=== PATIENT | female | born 1985 | race Caucasian/White ===

== ENCOUNTER 2016-07-14 12:28 | Emergency (ER) ==
[2016-07-14 12:37] VITALS: BP 122/80; TEMP 98.5; BMI 20.3
== END 2016-07-14 14:12 | disposition left against medical advice (07) ==
LOC: ED 12:28
DX: R51 Headache (principal); R11.0 Nausea; R52 Pain, unspecified; R10.9 Unspecified abdominal pain; Z98.890 Other specified postprocedural states

== ENCOUNTER 2016-10-13 10:52 | Outpatient (CLI) | END 2016-10-13 10:53 | disposition home or self-care (01) | LOC: LAB 10:52 | PROVIDERS: ATTEND Internal Medicine Hematology & Oncology | DX: D47.2 Monoclonal gammopathy (principal) | CPT/HCPCS: 36415; 84132 ==

== ENCOUNTER 2016-10-26 15:54 | Outpatient (CLI) ==
--- NOTE | 2016-10-26 16:37 | DI ---
EXAM: Bone survey HISTORY: Multiple myeloma. COMPARISON: CT abdomen pelvis 11/17/2015 FINDINGS: There is no lytic or blastic lesion of the skull. The paranasal sinuses are clear. There is no osseous abnormality of the ribs or thoracic spine. No lytic or blastic lesion. The left upp er extremities are normal. The lumbosacral spine demonstrates no lytic or blastic lesion. Single v iew of the pelvis demonstrates no lytic or blastic lesion. The pubic symphysis and sacroiliac joint s are normal. The hip joints are normal. Left lower extremities are normal. The lungs are clear. IMPRESSION: No lytic or sclerotic lesion of the visualized bones to suggest metastatic disease or m ultiple myeloma.
== END 2016-10-26 15:55 | disposition home or self-care (01) ==
LOC: RAD 15:54
PROVIDERS: ATTEND Internal Medicine Hematology & Oncology
DX: D47.2 Monoclonal gammopathy (principal)

== ENCOUNTER 2016-12-11 22:16 | Emergency (ER) ==
[2016-12-11 22:16] VITALS: BMI 20.3
[2016-12-11 22:33] VITALS: BP 125/84; TEMP 101
[2016-12-11] MEDS ORDERED: TORADOL IM STA (22:51)
--- NOTE | 2016-12-11 22:51 | ED.PDOC ---
General ED Provider: Dr. CHARLOTTE HANNAH Chief Complaint: Extremity Pain/Injury Stated Complaint: Patient is a 31 year old female who comes to the Er with complaints of Left shoulder pain that started yesterday after she fell off her stairs. Has limited range of motion on the left shoulder. Time Seen by Physician: 22:45 Mode of Arrival: Walk-In Information Source: Patient Exam Limitations: No limitations Primary Care Provider: JAYCE TERRELLYanick Nursing and Triage Documentation Reviewed and Agree: Yes Musculoskeletal Complaint Exam - Shoulder Pain Complaint/Exam Mechanism of Injury: Reports: Trauma Onset/Duration: 1 day Symptoms Are: Still present Timing: Constant Initial Severity: Severe Current Severity: Severe Location: Reports: Discrete (left shoulder ) Character: Reports: Throbbing Aggravating: Reports: Movement, Lifting, Flexion, Extension, Internal rotation, External rotation, Abduction Non-Orthopedic Risk Factors: Reports: None DVT Risk Factors: Reports: None Related Surgical History: Reports: None Tenderness: Present: Clavicle, AC joint, Rotator cuff muscles Differential Diagnoses: AC Seperation, Rotator Cuff Injury, Sprain, Strain Review of Systems - Review Of Systems Constitutional: Reports: No symptoms Eyes: Reports: No symptoms Ears, Nose, Mouth, Throat: Reports: No symptoms Respiratory: Reports: No symptoms Cardiac: Reports: No symptoms GI: Reports: No symptoms : Reports: No symptoms Musculoskeletal: Reports: Joint pain, Joint swelling, Muscle pain, Muscle stiffness Skin: Reports: No symptoms Neurological: Reports: Anxiety Endocrine: Reports: No symptoms Hematologic/Lymphatic: Reports: No symptoms All Other Systems: Reviewed and Negative Past Medical History - Past Medical History Endocrine: Reports: Hypothyroid Cardiovascular: Reports: None Respiratory: Reports: None Hematological: Reports: None Gastrointestinal: Reports: GERD Genitourinary: Reports: None Neuro/Psych: Reports: None, Anxiety Musculoskeletal: Reports: Arthritis Cancer: Reports: None Last Menstrual Period: DECEMBER 01, 2016 Other Pertinent Past Medical History: anx btl 07-03-15 - Surgical History General Surgical History: Reports: Tubal ligation, Unknown - Family History Family History: Reports: Unknown - Social History Smoking Status: Current every day smoker, Light tobacco smoker Hx Substance Use: No Alcohol Screening: None - Immunizations Tetanus Shot up to Date: Yes Physical Exam - Physical Exam Appearance: Ill-appearing, Thin Ill-appearing: Mild Pain Distress: Severe Eyes: TYREE, EOMI, Conjunctiva clear ENT: Ears normal, Nose normal, Oropharynx normal Neck: Supple Respiratory: Airway patent, Breath sounds clear, Breath sounds equal, Respirations nonlabored Cardiovascular: RRR, Pulses normal, No rub, No murmur GI/: Soft, Nontender, No masses, Bowel sounds normal, No Organomegaly Musculoskeletal: Limited ROM Psychiatric: Anxious Critical Care Note - Critical Care Note Total Time (mins): 0 Course - Course Orders, Labs, Meds: Orders Category Date Time Status Splint [ED SPLINT APPLICATION] .ONCE EMERGENCY 12/11/16 23:36 Active Ketorolac Tromethamine [Toradol] MEDS 12/11/16 22:51 Discontinued 60 mg IM ONCE STA SHOULDER, LEFT MIN 2V Stat RADS 12/11/16 22:51 Completed Medications Discontinued Medications Generic Name Dose Route Start Last Admin Trade Name Freq PRN Reason Stop Dose Admin Ketorolac Tromethamine 60 mg 12/11/16 22:51 12/11/16 23:12 Toradol IM 12/11/16 22:52 60 mg ONCE STA Administration Vital Signs: Temp Pulse Resp BP Pulse Ox 12/11/16 22:16 101 F H 96 H 20 125/84 94 L Departure - Departure Time of Disposition: 23:37 Disposition: HOME SELF-CARE Discharge Problem: Humeral head fracture Qualifiers: Encounter type: initial encounter Fracture type: closed Laterality: left Qualifier Code: (S42.292A) Other displaced fracture of upper end of left humerus , initial encounter for closed fracture Instructions: Proximal Humerus Fracture (ED) Condition: Fair Pt referred to PMD for follow-up: Yes Additional Instructions: use Shoulder immobilizer as needed for support Follow up with PCP tomorrow for orthopedic referral take medications as needed. Prescriptions: Hydrocodone/Acetaminophen [[place] 5-325 Tablet] 1 tab PO Q6HR PRN #12 tablet PRN Reason: PAIN Ibuprofen [Motrin] 600 mg PO Q6H PRN #30 tablet PRN Reason: Analgesia Allergies/Adverse Reactions: Allergies codeine Adverse Reaction (Verified 12/11/16 22:34) BREAKOUT/VOMITING sulfamethoxazole [From Bactrim] Adverse Reaction (Verified 12/11/16 22:34) trimethoprim [From Bactrim] Adverse Reaction (Verified 12/11/16 22:34) BREAKOUT/VOMIT codeine Adverse Reaction (Uncoded 12/11/16 22:34) Home Medications: Ambulatory Orders Hydrocodone/Acetaminophen [[place] 5-325 Tablet] 1 tab PO Q6HR PRN #12 tablet Ibuprofen [Motrin] 600 mg PO Q6H PRN #30 tablet 12/11/16 Meloxicam [Mobic] 7.5 mg PO DAILYWM 12/11/16 Methotrexate Sodium [Methotrexate] 2.5 mg PO WEEKLY 12/11/16
--- NOTE | 2016-12-11 23:25 | DI ---
EXAM: Three views of the left shoulder. HISTORY: Fall with pain. FINDINGS: There is a nondisplaced fracture through the lateral margin of the left humeral head and n saji. The joint spaces are maintained. No soft tissue abnormality. Impression: Nondisplaced fracture through the lateral margin of the left humeral head and neck.
== END 2016-12-12 00:10 | disposition home or self-care (01) ==
LOC: ED 22:16
DX: S42.292A Other displaced fracture of upper end of left humerus, initial encounter for closed fracture (principal); W10.9XXA Fall (on) (from) unspecified stairs and steps, initial encounter; F17.210 Nicotine dependence, cigarettes, uncomplicated
CPT/HCPCS: 96372; 99283

== ENCOUNTER 2017-02-07 15:28 | Emergency (ER) ==
[2017-02-07 15:32] VITALS: BP 126/81; TEMP 97.6; BMI 19.8
[2017-02-07] MEDS ORDERED: MORPHINE 4 MG/ML SYRINGE IM STA (15:44)
[2017-02-07] MEDS ORDERED: ZOFRAN 4 MG/2 ML IM STA (15:44)
[2017-02-07 15:50] LABS: BASOPHILS # (AUTO) 0.1 K/uL (0-0.2); BASOPHILS % (AUTO) 0.3 % (0.0-3.0); EOSINOPHILS # (AUTO) 0.1 K/ul (0.0-0.7); EOSINOPHILS % (AUTO) 0.9 % (0.0-7.0); HEMATOCRIT 42.6 % (37.0-47.0); HEMOGLOBIN 14.9 g/dl (12.0-16.0); IMMATURE GRANULOCYTE % (AUTO) 0.3 % (0.0-5.0); LYMPHOCYTES % (AUTO) 19.3 (10.0-50.0); MEAN CORPUSCULAR HEMOGLOBIN 31.8 pg (27.0-31.0); MONOCYTES # (AUTO) 0.8 K/uL (0.4-2.0); MONOCYTES % (AUTO) 5.4 (0-10); NEUTROPHILS # (AUTO) 11.2 K/ul (2.0-6.9); NEUTROPHILS % (AUTO) 73.8; PLATELET COUNT 258 10^3/uL (140-440); RED BLOOD COUNT 4.68 10^6/ul (4.20-5.40); WHITE BLOOD COUNT 15.25 K/ul (4.6-10.2)
[2017-02-07] MEDS ORDERED: MORPHINE 4 MG/ML SYRINGE IVP STA (15:50)
[2017-02-07] MEDS ORDERED: ZOFRAN 4 MG/2 ML IVP STA (15:50)
[2017-02-07] MEDS ORDERED: SODIUM CHLORIDE 1,000 ML IV STA (15:51)
[2017-02-07 16:15] LABS: ALBUMIN 4.4 g/dL (3.4-5.0); ALBUMIN/GLOBULIN RATIO 1.38; ANION GAP 17.9; BILIRUBIN,TOTAL 0.57 mg/dL (0.00-1.20); BUN/CREATININE RATIO 16.48; CALCIUM 9.5 mg/dL (8.2-10.2); CREATININE 0.91 mg/dL (0.60-1.30); POTASSIUM 3.9 mmol/L (3.5-5.10); TOTAL PROTEIN 7.6 g/dL (6.4-8.2)
--- NOTE | 2017-02-07 16:17 | US ---
EXAM: Ultrasound Transvaginal Non-obstetrical. HISTORY: Right lower quadrant pain. COMPARISON: CT 03/03/2014. TECHNIQUE: Judd scale and color doppler images with transvaginal probe. FINDINGS: The uterus measures 6.3 x 3.4 x 4.6 cm and appears normal. Endometrial stripe measures 0 .4 cm. Right ovary measures 3 x 1.7 x 1.8 cm. Left ovary measures 2.3 x 2.2 x 1.6 cm. Both ovarie s appear unremarkable with color flow. No significant pelvic fluid identified. IMPRESSION: Normal pelvic ultrasound.
--- NOTE | 2017-02-07 16:30 | CT ---
EXAM: CT Abdomen without contrast. CT Pelvis without contrast. HISTORY: Lower abdominal pain. Right hip pain. Nausea and vomiting. COMPARISON: CT 03/03/2014. TECHNIQUE: Multiple axial images of the abdomen and pelvis were obtained without intravenous contra st. Images were reformatted in the coronal plane. FINDINGS: Please note that evaluation of the abdominal and pelvic structures is limited due to lack of intravenous contrast. The lung bases are clear. No acute osseous abnormality detected. The liver, gallbladder, pancreas, spleen, and adrenal glands demonstrate normal contour. No calcifi ed renal stones or hydronephrosis identified. The bowel is normal in course and caliber without evidence for obstruction or inflammatory process. The appendix is normal. Uterus demonstrates normal contour. Urinary bladder is not well distended . Phleboliths noted in the pelvis. No free fluid or free air detected IMPRESSION: No acute abnormality within the abdomen or pelvis.
--- NOTE | 2017-02-07 16:44 | ED.PDOC ---
General ED Provider: Dr. JUAN F DISLA Chief Complaint: Abdominal Pain Stated Complaint: abdominal pain Time Seen by Physician: 15:30 Mode of Arrival: Walk-In Information Source: Patient Exam Limitations: No limitations [facility] Documentation Reviewed and Agree: Yes GI Complaint Exam - Abdominal Pain Complaint/Exam Onset: Gradual Duration: 1 day Symptoms Are: Still present Timing: Intermittent Initial Severity: Moderate Current Severity: Moderate Location of Pain: RLQ, LLQ, Suprapubic Character: Reports: Aching Alleviating: Reports: None Associated Signs and Symptoms: Reports: Cough, Decreased appetite. Denies: Diaphoresis, Fever, Chest pain, Dizziness, Back pain, Constipation, Blood in stool, Dysuria, Urinary frequency, Decreased urine output, Vaginal bleeding, Vaginal discharge, Nausea, Vomiting, Diarrhea, Sore throat, Decreased activity Related History: Reports: Similar episode Ectopic Risk Factors: Reports: Maternal age >30 Ovarian Torsion Risk Factors: Reports: Reproductive age Surgical Obstruction Risk Factors: Reports: None Related Surgical History: Reports: None Patient Rh Status: Unknown Abdominal Findings: Present: None Differential Diagnoses: Appendicitis, Bowel Obstruction, Constipation, Diverticulitis, Gastroenteritis, Pancreatitis, Renal Colic, Ureteral Stone, UTI , Ectopic , Ovarian Cyst Review of Systems - Review Of Systems Constitutional: Reports: Malaise Eyes: Reports: No symptoms Ears, Nose, Mouth, Throat: Reports: No symptoms Respiratory: Reports: No symptoms Cardiac: Reports: No symptoms GI: Reports: Abdominal pain : Reports: No symptoms Musculoskeletal: Reports: No symptoms Skin: Reports: No symptoms Neurological: Reports: No symptoms Endocrine: Reports: No symptoms Hematologic/Lymphatic: Reports: No symptoms All Other Systems: Reviewed and Negative Past Medical History - Past Medical History Endocrine: Reports: Hypothyroid Cardiovascular: Reports: None Respiratory: Reports: None Hematological: Reports: None Gastrointestinal: Reports: GERD Genitourinary: Reports: None Neuro/Psych: Reports: None, Anxiety Musculoskeletal: Reports: Arthritis Cancer: Reports: None Last Menstrual Period: currently Other Pertinent Past Medical History: anx btl 07-03-15 - Surgical History General Surgical History: Reports: Tubal ligation, Unknown - Family History Family History: Reports: Unknown - Social History Smoking Status: Current every day smoker, Light tobacco smoker Hx Substance Use: No Alcohol Screening: None Physical Exam - Physical Exam Appearance: Well-appearing, No pain distress, Well-nourished Eyes: TYREE, EOMI, Conjunctiva clear ENT: Ears normal, Nose normal, Oropharynx normal Respiratory: Airway patent, Breath sounds clear, Breath sounds equal, Respirations nonlabored Cardiovascular: RRR, Pulses normal, No rub, No murmur GI/: Soft, Nontender, No masses, Bowel sounds normal, No Organomegaly Musculoskeletal: Normal strength, ROM intact, No edema, No calf tenderness Skin: Warm, Dry, Normal color Neurological: Sensation intact, Motor intact, Reflexes intact, Cranial nerves intact, Alert, Oriented Psychiatric: Affect appropriate, Mood appropriate Interpretation - Radiology Interpretation Radiology Interpretation By: Radiologist Radiology Results: No acute changes Critical Care Note - Critical Care Note Total Time (mins): 0 Course - Course Hematology/Chemistry: 02/07/17 15:40 02/07/17 15:40 Orders, Labs, Meds: Lab Review 02/07/17 15:40 WBC 15.25 H RBC 4.68 Hgb 14.9 Hct 42.6 MCV 91.0 MCH 31.8 H MCHC 35.0 RDW Coeff of Aneta 13.6 Plt Count 258 Immature Gran % (Auto) 0.3 Neut % (Auto) 73.8 Lymph % (Auto) 19.3 [place] % (Auto) 5.4 Eos % (Auto) 0.9 Baso % (Auto) 0.3 Immature Gran # (Auto) 0.0 Neut # 11.2 H Lymph # 3.0 [place] # 0.8 Eos # 0.1 Baso # 0.1 Sodium 142 Potassium 3.9 Chloride 106 Carbon Dioxide 22 Anion Gap 17.9 BUN 15 Creatinine 0.91 Estimated GFR (MDRD) 71.00 BUN/Creatinine Ratio 16.48 Glucose 90 Calcium 9.5 Total Bilirubin 0.57 AST 15 ALT 17 Alkaline Phosphatase 91 Total Protein 7.6 Albumin 4.4 Globulin 3.2 Albumin/Globulin Ratio 1.38 Amylase 48 Lipase 19 Orders Category Date Time Status ED IV/MEDIPORT/POWERPORT .ONCE EMERGENCY 02/07/17 15:50 Ordered AMYLASE Stat LAB 02/07/17 15:43 Ordered CBC W/ AUTO DIFF Stat LAB 02/07/17 15:43 Ordered COMPREHENSIVE METABOLIC PANEL Stat LAB 02/07/17 15:43 Ordered LIPASE Stat LAB 02/07/17 15:43 Ordered URINALYSIS C & S IF INDICATED Stat LAB 02/07/17 15:43 Uncollected 0.9 % Sodium Chloride [Saline Flush] MEDS 02/07/17 15:50 Ordered 1 syr IVF PRN PRN Morphine Sulfate [Morphine 4 mg/ml Syringe] MEDS 02/07/17 15:50 Stat 4 mg IVP ONCE STA Ondansetron HCl/Pf [Zofran 4 mg/2 ml] MEDS 02/07/17 15:50 Stat 4 mg IVP ONCE STA SODIUM CHLORIDE 0.9% @ 1,000 MLS/HR(1,000ml) MEDS 02/07/17 15:51 Ordered Sodium Chloride 0.9% [Sodium Chloride] 1,[address] ABDOMEN/PELVIS WO CONTRAST Stat RADS 02/07/17 15:43 Ordered U/S PELVIS LIGHT VAGINAL/NON OB Stat RADS 02/07/17 15:44 Ordered Medications Generic Name Dose Route Start Last Admin Trade Name Freq PRN Reason Stop Dose Admin Sodium Chloride 1,000 mls @ 1,000 mls/hr 02/07/17 15:51 02/07/17 16:12 Sodium Chloride IV 02/07/17 16:50 1,000 mls/hr BOLUS STA Administration Sodium Chloride 1 syr 02/07/17 15:50 02/07/17 16:12 Saline Flush IVF 1 syr PRN PRN Administration To flush IV Discontinued Medications Generic Name Dose Route Start Last Admin Trade Name Freq PRN Reason Stop Dose Admin Morphine Sulfate 4 mg 02/07/17 15:50 02/07/17 16:12 Morphine 4 Mg/Ml Syringe IVP 02/07/17 15:51 4 mg ONCE STA Administration Ondansetron HCl 4 mg 02/07/17 15:50 02/07/17 16:12 Zofran 4 Mg/2 Ml IVP 02/07/17 15:51 4 mg ONCE STA Administration Vital Signs: Temp Pulse Resp BP Pulse Ox 02/07/17 15:28 97.6 F 59 L 18 126/81 98 Departure - Departure Time of Disposition: 16:45 Disposition: HOME SELF-CARE Discharge Problem: Abdominal pain Instructions: Abdominal Pain (ED) Condition: Good Pt referred to PMD for follow-up: Yes Additional Instructions: Please call your Family Physician as soon as possible to schedule a follow-up appointment. Allergies/Adverse Reactions: Allergies codeine Adverse Reaction (Verified 02/07/17 15:32) BREAKOUT/VOMITING sulfamethoxazole [From Bactrim] Adverse Reaction (Verified 02/07/17 15:32) trimethoprim [From Bactrim] Adverse Reaction (Verified 02/07/17 15:32) BREAKOUT/VOMIT codeine Adverse Reaction (Uncoded 12/11/16 22:34) Home Medications: Ambulatory Orders Meloxicam [Mobic] 7.5 mg PO DAILYWM 12/11/16 Methotrexate Sodium [Methotrexate] 2.5 mg PO WEEKLY 12/11/16 Ondansetron HCl [Zofran Tab] 4 mg PO Q8H #6 tablet 02/07/17
== END 2017-02-07 17:01 | disposition home or self-care (01) ==
LOC: ED 15:28
DX: R10.30 Lower abdominal pain, unspecified (principal); R05 Cough; E03.9 Hypothyroidism, unspecified; K21.9 Gastro-esophageal reflux disease without esophagitis; F17.210 Nicotine dependence, cigarettes, uncomplicated
CPT/HCPCS: 36415; 80053; 82150; 83690; 85025; 96361; 96374; 96375; 99283

== ENCOUNTER 2017-03-10 09:30 | Outpatient (CLI) ==
[2017-03-13 15:15] LABS: 24HR PROTEIN CALCULATED 134 mg/24 hr (30-150); TOTAL PROTEIN URINE 16.7 mg/dL (Not Estab.); URINE ALBUMIN 23.9 % (.); URINE ALPHA-1 GLOBULIN 4.5 % (.); URINE ALPHA-2 GLOBULIN 17.4 % (.); URINE BETA GLOBULIN 35.5 % (.); URINE GAMMA GLOBULIN 18.7 % (.)
== END 2017-03-10 09:31 | disposition home or self-care (01) ==
LOC: LAB 09:30
PROVIDERS: ATTEND Internal Medicine Hematology & Oncology
DX: D47.2 Monoclonal gammopathy (principal)
CPT/HCPCS: 36415; 81050

== ENCOUNTER 2017-06-08 15:37 | Outpatient (CLI) ==
[2017-06-08 16:18] LABS: HEMATOCRIT 43.9 % (37.0-47.0); HEMOGLOBIN 14.6 g/dl (12.0-16.0); MEAN CORPUSCULAR HEMOGLOBIN 31.5 pg (27.0-31.0); MEAN CORPUSCULAR HGB CONC 33.3 (31.8-35.4); MEAN CORPUSCULAR VOLUME 94.6 fl (81.0-99.0); PLATELET COUNT 262 10^3/uL (140-440); RED BLOOD COUNT 4.64 10^6/ul (4.20-5.40); WHITE BLOOD COUNT 11.46 K/ul (4.6-10.2)
[2017-06-08 16:19] LABS: ESR INTERNAL QC INTERNAL QC VALID
[2017-06-08 16:24] LABS: BILIRUBIN,URINE Negative (NEGATIVE); KETONES,URINE Negative (NEGATIVE); LEUKOCYTE ESTERASE ,URINE Negative (NEGATIVE); NITRITE,URINE Negative (NEGATIVE); PH,URINE 5.5 (5-9); PROTEIN,URINE Negative (NEGATIVE); URINE, BLOOD 2+ (NEGATIVE)
[2017-06-08 16:26] LABS: ADD URINE MICROSCOPIC YES
--- NOTE | 2017-06-08 16:27 | DI ---
EXAM: Radiographs, left hand HISTORY: Left hand pain. COMPARISON: None available. TECHNIQUE: Two views. FINDINGS: Bone mineralization is normal. There is no fracture or dislocation. The joint spaces are maintained. No erosive changes detected. No focal soft tissue abnormality is seen. IMPRESSION: No acute abnormality of the left hand.
--- NOTE | 2017-06-08 16:27 | DI ---
EXAM: Radiographs, left wrist HISTORY: Left wrist pain. COMPARISON: None available. TECHNIQUE: Two views. FINDINGS: Bone mineralization is normal. There is no fracture or dislocation. The joint spaces are maintained. No erosive changes are seen. No focal soft tissue abnormality is seen. IMPRESSION: No abnormality of the left wrist.
--- NOTE | 2017-06-08 16:30 | DI ---
EXAM: Radiographs, right wrist HISTORY: Right wrist pain. COMPARISON: None available. TECHNIQUE: Two views. FINDINGS: Bone mineralization is normal. There is no fracture or dislocation. The joint spaces are maintained. No erosive changes detected. No focal soft tissue abnormality is seen. IMPRESSION: No abnormality of the right wrist.
--- NOTE | 2017-06-08 16:30 | DI ---
EXAM: Radiographs, right hand HISTORY: Right hand pain. COMPARISON: None available. TECHNIQUE: Two views. FINDINGS: Bone mineralization is normal. There is no fracture or dislocation. The joint spaces are maintained. No erosive changes detected. No focal soft tissue abnormality is seen. IMPRESSION: No abnormality of the right hand.
--- NOTE | 2017-06-08 16:31 | DI ---
EXAM: Radiographs, left shoulder HISTORY: Left shoulder pain. COMPARISON: None available. TECHNIQUE: Two views. FINDINGS: Bone mineralization is normal. There is no fracture or dislocation. The joint spaces are maintained. No focal soft tissue abnormality is seen. IMPRESSION: No abnormality of the left shoulder.
--- NOTE | 2017-06-08 16:31 | DI ---
EXAM: Radiographs, right shoulder HISTORY: Right shoulder pain. COMPARISON: None available. TECHNIQUE: Two views. FINDINGS: Bone mineralization is normal. There is no fracture or dislocation. The joint spaces are maintained. No focal soft tissue abnormality is seen. IMPRESSION: No abnormality of the right shoulder.
--- NOTE | 2017-06-08 16:33 | DI ---
EXAM: Right hip two-view HISTORY: Pain COMPARISON: 10/17/2015 FINDINGS: The bones are normal. The hip joint is normal. No focal soft tissue abnormality. IMPERSSION: Normal examination.
--- NOTE | 2017-06-08 16:33 | DI ---
EXAM: Right knee, two-view HISTORY: Pain COMPARISON: 10/17/2015 FINDINGS: The bones are normal. The medial, lateral, and patellofemoral compartments are normal in h eight. No joint effusion. IMPERSSION: Normal examination.
--- NOTE | 2017-06-08 16:34 | DI ---
EXAM: Two views of the left knee HISTORY: Left knee pain. COMPARISON: Right knee x-ray 06/08/2017 FINDINGS: The medial and lateral compartments of the left knee are normal. There is no lytic or blast ic lesion. No displaced fracture or dislocation is maintained. The patella is normal in appearance. The soft tissues are unremarkable. IMPRESSION: No acute abnormality of the left knee.
--- NOTE | 2017-06-08 16:34 | DI ---
EXAM: Radiographs, right foot HISTORY: Right foot pain. COMPARISON: None available. TECHNIQUE: Two views. FINDINGS: Bone mineralization is normal. There is no fracture or dislocation. The joint spaces are maintained. No erosive changes detected. No focal soft tissue abnormality is seen. IMPRESSION: No abnormality of the right foot.
--- NOTE | 2017-06-08 16:34 | DI ---
EXAM: Radiographs, left hip HISTORY: Left hip pain. COMPARISON: None available. TECHNIQUE: Two views. FINDINGS: Bone mineralization is normal. There is no fracture or dislocation. The joint spaces are maintained. No focal soft tissue abnormality is seen. IMPRESSION: No abnormality of the left hip.
--- NOTE | 2017-06-08 16:35 | DI ---
EXAM: Radiographs, right ankle HISTORY: Right ankle pain. COMPARISON: None available. TECHNIQUE: Two views. FINDINGS: Bone mineralization is normal. There is no fracture or dislocation. The joint spaces are maintained. No erosive changes are seen. No focal soft tissue abnormality is seen. IMPRESSION: No abnormality of the right ankle.
--- NOTE | 2017-06-08 16:35 | DI ---
EXAM: Left foot two views HISTORY: Pain COMPARISON: 10/17/2015 FINDINGS: The bones are normal. The joints are normal. No focal soft tissue abnormality. IMPERSSION: Normal examination.
--- NOTE | 2017-06-08 16:36 | DI ---
EXAM: Two views of the left ankle HISTORY: Left ankle pain. COMPARISON: Left ankle x-ray 10/17/2015 FINDINGS: No acute abnormality or displaced fracture of the left ankle. There is normal joint space. There is no osteophyte formation or erosion. The soft tissues are normal. IMPRESSION: No acute abnormality of the left ankle.
[2017-06-08 16:59] LABS: ERYTHROCYTE SEDIMENTATION RATE 2 mm/hr (0-20)
[2017-06-08 17:30] LABS: ANION GAP 15.5; BILIRUBIN,DIRECT 0.24 mg/dL (0.00-0.30); BILIRUBIN,TOTAL 0.58 mg/dL (0.00-1.20); BUN/CREATININE RATIO 13.04; CALCIUM 9.6 mg/dL (8.2-10.2); CREATININE 0.92 mg/dL (0.60-1.30); FERRITIN 163.86 ng/mL (4.63-204.00); FOLATE 15.8 ng/mL (3.1-20.5); MAGNESIUM 2.1 mg/dL (1.7-2.2); POTASSIUM 3.5 mmol/L (3.5-5.10); TOTAL PROTEIN 7.5 g/dL (6.4-8.2)
== END 2017-06-08 15:38 | disposition home or self-care (01) ==
LOC: RAD 15:37
PROVIDERS: ATTEND Internal Medicine Rheumatology
DX: M19.90 Unspecified osteoarthritis, unspecified site (principal); R53.83 Other fatigue; M79.1 Myalgia; E83.42 Hypomagnesemia; E55.9 Vitamin D deficiency, unspecified; E53.8 Deficiency of other specified B group vitamins; Z13.1 Encounter for screening for diabetes mellitus; Z51.81 Encounter for therapeutic drug level monitoring; Z79.899 Other long term (current) drug therapy
CPT/HCPCS: 36415; 80048; 80076; 81001; 82306; 82550; 82607; 82728; 82746; 83036; 83735; 84439; 84443; 84550; 85027; 85651; 86430

== ENCOUNTER 2017-07-26 15:37 | Outpatient (CLI) | END 2017-07-26 15:38 | disposition home or self-care (01) | LOC: LAB 15:37 | PROVIDERS: ATTEND Nurse Practitioner Family | DX: R05 Cough (principal); R50.9 Fever, unspecified | CPT/HCPCS: 87502; 87651 ==

== ENCOUNTER 2017-09-19 19:49 | Observation (INO) ==
[2017-09-19] MEDS ORDERED: SODIUM CHLORIDE 1,000 ML IV SCH (20:00)
[2017-09-19] MEDS ORDERED: ZOFRAN 4 MG/2 ML IVP STA (20:00)
[2017-09-19] MEDS ORDERED: DEMEROL 25 MG/ML VIAL IVP STA (20:00)
--- NOTE | 2017-09-19 21:43 | CT ---
EXAM: CT abdomen pelvis with contrast TECHNIQUE: Helical axial CT of the abdomen and pelvis was performed with contrast with coronal and s agittal reconstructions. COMPARISON: None HISTORY: Abdominal pain FINDINGS: There is no acute abnormality. Specifically there is no mesenteric inflammation, free air, significan t free fluid or bowel wall thickening or edema or pathologic lymph nodes or obstruction or ileus. The liver, spleen, pancreas,and adrenal glands show no acute abnormality. Lung bases are well-aerate d. There is no hiatal hernia. The gallbladder is normal with no stones or inflammation. There is no biliary or pancreatic ductal dilatation. There are no suspicious renal masses or large cysts and no hydronephrosis. There are no kidney stones . Both ureters demonstrate normal course and caliber. There is no filling defect in the urinary blad jessica. There is some minimal free fluid in the pelvis probably physiologic. There are some phleboliths . Uterus and adnexa are unremarkable. The appendix is unremarkable and contains barium. There are no colonic diverticula. There are no abd ominal wall hernias. The aorta is normal with no aneurysm or calcific atherosclerosis. There are no a cute osseous abnormalities. IMPRESSION: 1. No definite acute abnormality in the abdomen or pelvis. 2. There is some minimal free fluid in the pelvis which is probably physiologic.
--- NOTE | 2017-09-19 21:48 | ED.PDOC ---
General ED Provider: Dr. JAYCE MCMAHON Chief Complaint: Abdominal Pain Stated Complaint: Came for the lower abdominal pain, started since she ate Omlter, vomited 10 times, not able to keep anything down. no fever or chills, Time Seen by Physician: 19:55 Mode of Arrival: Walk-In Information Source: Patient Primary Care Provider: JAYCE MCMAHON-[facility] Nursing and Triage Documentation Reviewed and Agree: Yes Reviewed sepsis parameters & appropriate labs ordered?: No System Inflammatory Response Syndrome: Not Applicable Sepsis Protocol: For patient's 13 years and over: Temp is 96.8 and below OR 101 and greater Pulse >90 BPM Resp >20/minute Acutely Altered Mental Status Are patient's symptoms suggestive of a new infection, such as: -Pneumonia -Skin, Soft Tissue -Endocarditis -UTI -Bone, Joint Infection -Implantable Device -Acute Abdominal Infection -Wound Infection -Meningitis -Blood Stream Catheter Infection -Unknown GI Complaint Exam - Abdominal Pain Complaint/Exam Onset: Gradual Symptoms Are: Still present Timing: Constant Initial Severity: Moderate Current Severity: Moderate Location of Pain: Suprapubic Radiates To: Reports: Back, Flank Character: Reports: Aching, Throbbing, Burning, Cramping Aggravating: Reports: Movement, Food, Deep breaths Alleviating: Reports: None Associated Signs and Symptoms: Reports: Diaphoresis. Denies: Fever, Cough, Chest pain, Dizziness, Back pain, Constipation, Blood in stool, Dysuria, Urinary frequency, Decreased urine output, Decreased appetite, Vaginal bleeding , Vaginal discharge, Nausea, Vomiting, Diarrhea, Sore throat, Decreased activity AAA Risk Factors: Reports: None Cardiac Risk Factors: Reports: None Ectopic Risk Factors: Reports: None Ovarian Torsion Risk Factors: Reports: None Surgical Obstruction Risk Factors: Reports: None Related Surgical History: Reports: None Patient Rh Status: Unknown Abdominal Findings: Absent: Pulsatile mass, Abdominal distention, Unequal femoral pulses Differential Diagnoses: Gastroenteritis Review of Systems - Review Of Systems Constitutional: Reports: Malaise, Weakness Eyes: Reports: No symptoms Ears, Nose, Mouth, Throat: Reports: No symptoms Respiratory: Reports: No symptoms Cardiac: Reports: No symptoms GI: Reports: Abdominal pain : Reports: No symptoms Musculoskeletal: Reports: No symptoms Skin: Reports: No symptoms Neurological: Reports: No symptoms Endocrine: Reports: No symptoms Hematologic/Lymphatic: Reports: No symptoms All Other Systems: Reviewed and Negative Past Medical History - Past Medical History Endocrine: Reports: Hypothyroid Cardiovascular: Reports: None Respiratory: Reports: None Hematological: Reports: None Gastrointestinal: Reports: GERD Genitourinary: Reports: None Neuro/Psych: Reports: None, Anxiety Musculoskeletal: Reports: Arthritis Cancer: Reports: None Last Menstrual Period: 09/07/17 Other Pertinent Past Medical History: anx btl 14 - Surgical History General Surgical History: Reports: Tubal ligation, Unknown - Family History Family History: Reports: Unknown - Social History Smoking Status: Current every day smoker, Light tobacco smoker Hx Substance Use: No Alcohol Screening: None Physical Exam - Physical Exam Appearance: Ill-appearing, Thin Pain Distress: Severe Eyes: TYREE, EOMI, Conjunctiva clear ENT: Ears normal, Nose normal, Oropharynx normal Respiratory: Airway patent, Breath sounds clear, Breath sounds equal, Respirations nonlabored Cardiovascular: RRR, Pulses normal, No rub, No murmur GI/: Tender Musculoskeletal: Normal strength, ROM intact, No edema, No calf tenderness Skin: Warm, Dry, Normal color Neurological: Sensation intact, Motor intact, Reflexes intact, Cranial nerves intact, Alert, Oriented Psychiatric: Affect appropriate, Mood appropriate Critical Care Note - Critical Care Note Total Time (mins): 30 Course - Course Hematology/Chemistry: 09/19/17 20:10 09/19/17 20:10 Orders, Labs, Meds: Lab Review 09/19/17 09/19/17 09/19/17 20:08 20:08 20:08 WBC RBC Hgb Hct MCV MCH MCHC RDW Coeff of Aneta Plt Count Immature Gran % (Auto) Neut % (Auto) Lymph % (Auto) [place] % (Auto) Eos % (Auto) Baso % (Auto) Immature Gran # (Auto) Neut # (Auto) Lymph # (Auto) [place] # (Auto) Eos # (Auto) Baso # (Auto) Sodium Potassium Chloride Carbon Dioxide Anion Gap BUN Creatinine Estimated GFR (MDRD) BUN/Creatinine Ratio Glucose Calcium Total Bilirubin AST ALT Alkaline Phosphatase Total Protein Albumin Globulin Albumin/Globulin Ratio Urine Color Yellow Urine Clarity Slightly Urine pH 6.5 Ur Specific [place] 1.025 Urine Protein Negative Urine Glucose (UA) Negative Urine Ketones Negative Urine Blood 1+ Urine Nitrite Negative Urine Bilirubin Negative Urine Urobilinogen 0.2 Ur Leukocyte Esterase Trace Urine Microscopic RBC 2-5 Urine Microscopic WBC 0-2 Ur Squamous Epith Cells 5-10 Urine Bacteria 2+ Urine Test Negative Urine Opiates Screen Negative Ur Oxycodone Screen Negative Urine Methadone Screen Negative Ur Propoxyphene Screen Negative Ur Barbiturates Screen Negative U Tricyclic Antidepress Negative Ur Phencyclidine Scrn Negative Ur Amphetamine Screen Negative U Methamphetamines Scrn Negative U Benzodiazepines Scrn Negative Urine Cocaine Screen Negative U Cannabinoids Screen Positive 09/19/17 09/19/17 20:10 20:10 WBC 18.13 H RBC 4.41 Hgb 14.0 Hct 40.1 MCV 90.9 MCH 31.7 H MCHC 34.9 RDW Coeff of Aneta 13.9 Plt Count 264 Immature Gran % (Auto) 0.3 Neut % (Auto) 63.8 Lymph % (Auto) 25.8 [place] % (Auto) 7.9 Eos % (Auto) 1.9 Baso % (Auto) 0.3 Immature Gran # (Auto) 0.1 Neut # (Auto) 11.6 H Lymph # (Auto) 4.7 H [place] # (Auto) 1.4 Eos # (Auto) 0.3 Baso # (Auto) 0.1 Sodium 141 Potassium 3.9 Chloride 108 H Carbon Dioxide 17 L Anion Gap 19.9 BUN 15 Creatinine 0.82 Estimated GFR (MDRD) 80.00 BUN/Creatinine Ratio 18.29 Glucose 109 Calcium 9.7 Total Bilirubin 0.4 AST 17 ALT 16 Alkaline Phosphatase 79 Total Protein 7.4 Albumin 4.0 Globulin 3.4 Albumin/Globulin Ratio 1.18 Urine Color Urine Clarity Urine pH Ur Specific [place] Urine Protein Urine Glucose (UA) Urine Ketones Urine Blood Urine Nitrite Urine Bilirubin Urine Urobilinogen Ur Leukocyte Esterase Urine Microscopic RBC Urine Microscopic WBC Ur Squamous Epith Cells Urine Bacteria Urine Test Urine Opiates Screen Ur Oxycodone Screen Urine Methadone Screen Ur Propoxyphene Screen Ur Barbiturates Screen U Tricyclic Antidepress Ur Phencyclidine Scrn Ur Amphetamine Screen U Methamphetamines Scrn U Benzodiazepines Scrn Urine Cocaine Screen U Cannabinoids Screen Orders Category Date Time Status ED IV/MEDIPORT/POWERPORT .ONCE EMERGENCY 09/19/17 20:00 Active CBC W/ AUTO DIFF Stat LAB 09/19/17 20:10 Completed COMPREHENSIVE METABOLIC PANEL Stat LAB 09/19/17 20:10 Completed DRUG SCREEN, URINE, RAPID Stat LAB 09/19/17 20:08 Completed URINALYSIS C & S IF INDICATED Stat LAB 09/19/17 20:08 Completed URINE CULTURE Stat LAB 09/19/17 20:24 Received URINE Stat LAB 09/19/17 20:08 Completed 0.9 % Sodium Chloride [Saline Flush] MEDS 09/19/17 20:00 Ordered 1 syr IVF PRN PRN Meperidine HCl/Pf [Demerol 25 mg/ml Vial] MEDS 09/19/17 20:00 Discontinued 25 mg IVP ONCE STA Ondansetron HCl/Pf [Zofran 4 mg/2 ml] MEDS 09/19/17 20:00 Discontinued 4 mg IVP ONCE STA Sodium Chloride 0.9% [Sodium Chloride] 1,000 ml MEDS 09/19/17 20:00 Ordered IV 50 mls/hr CT ABDOMEN/PELVIS WO CONTRAST Stat RADS 09/19/17 20:00 Completed Medications Generic Name Dose Route Start Last Admin Trade Name Freq PRN Reason Stop Dose Admin Sodium Chloride 1,000 mls @ 50 mls/hr 09/19/17 20:00 09/19/17 20:17 Sodium Chloride IV 50 mls/hr .Q20H NATALIA Administration Sodium Chloride 1 syr 09/19/17 20:00 09/19/17 20:22 Saline Flush IVF 1 syr PRN PRN Administration To flush IV Discontinued Medications Generic Name Dose Route Start Last Admin Trade Name Freq PRN Reason Stop Dose Admin Meperidine HCl 25 mg 09/19/17 20:00 09/19/17 20:18 Demerol 25 Mg/Ml Vial IVP 09/19/17 20:01 25 mg ONCE STA Administration Ondansetron HCl 4 mg 09/19/17 20:00 09/19/17 20:17 Zofran 4 Mg/2 Ml IVP 09/19/17 20:01 4 mg ONCE STA Administration Vital Signs: Temp Pulse Resp BP Pulse Ox 09/19/17 19:49 98.7 F 70 24 140/59 L 98 Departure - Departure Time of Disposition: 21:49 Disposition: ADMITTED INPATIENT Discharge Problem: Abdominal pain, Gastroenteritis Instructions: Dehydration (ED), Gastroenteritis (ED) Condition: Stable Pt referred to PMD for follow-up: No IPMP verified?: No Allergies/Adverse Reactions: Allergies codeine Adverse Reaction (Verified 02/07/17 15:32) BREAKOUT/VOMITING sulfamethoxazole [From Bactrim] Adverse Reaction (Verified 02/07/17 15:32) trimethoprim [From Bactrim] Adverse Reaction (Verified 02/07/17 15:32) BREAKOUT/VOMIT codeine Adverse Reaction (Uncoded 12/11/16 22:34) Home Medications: Ambulatory Orders Methotrexate Sodium [Methotrexate] 2.5 mg PO WEEKLY 12/11/16 Folic Acid 1 mg PO BID 03/23/17 Prednisone 5 mg PO DAILY 07/26/17 Disposition Discussed With: Patient, Family
[2017-09-19] MEDS: ZOFRAN 4 MG/2 ML IVP SCH (22:12)
[2017-09-19] MEDS: DEMEROL 25 MG/ML VIAL IVP PRN (22:12)
[2017-09-19] MEDS ORDERED: TORADOL IVP STA (22:50)
[2017-09-19] MEDS ORDERED: TORADOL ONE (22:54)
[2017-09-19] MEDS ORDERED: ROCEPHIN 1 GM in SODIUM CHLORIDE 50 ML IV STA (22:57)
[2017-09-19] MEDS ORDERED: ROCEPHIN ONE (22:58)
[2017-09-19 23:21] VITALS: BMI 22.1
[2017-09-19] MEDS: SODIUM CHLORIDE 1,000 ML IV SCH (23:41)
[2017-09-20] MEDS: DEMEROL 25 MG/ML VIAL IVP PRN ×2 (04:00→15:36)
[2017-09-20] MEDS: ZOFRAN 4 MG/2 ML IVP SCH ×4 (04:01→21:37)
[2017-09-20] MEDS ORDERED: PROTONIX IV IVP STA (07:57)
[2017-09-20] MEDS ORDERED: ROCEPHIN 1 GM in SODIUM CHLORIDE 50 ML IV STA (07:57)
[2017-09-20] MEDS: SODIUM CHLORIDE 1,000 ML IV SCH (14:30)
[2017-09-21] MEDS: SODIUM CHLORIDE 1,000 ML IV SCH (03:44)
[2017-09-21] MEDS: ZOFRAN 4 MG/2 ML IVP SCH ×2 (03:59→09:52)
[2017-09-21] MEDS ORDERED: TORADOL IVP STA (09:10)
[2017-09-21 10:03] VITALS: BP 114/75; TEMP 98.1
--- NOTE | 2017-09-21 11:53 | PN ---
DATE OF SERVICE: 09/20/17 SUBJECTIVE: The patient was admitted with acute gastroenteritis and severe abdominal pain. Abdominal pain is better, still nauseous and not able to keep anything. REVIEW OF SYSTEMS: CONSTITUTIONAL: No fever, no chills. HEENT: Normal. ENDOCRINE: No weight gain, no weight loss. CVS: No angina symptoms. No CHF symptoms. No palpitations. No atypical chest pain for CAD. No shortness of breath. No PND, no orthopnea. RESPIRATORY: No cough, no hemoptysis. GI: No nausea, no vomiting. No abdominal pain. : No hematuria. No polyuria. MUSCULOSKELETAL: No joint swelling. PSYCHIATRIC: Not anxious. No depression. No suicidal thoughts. No homicidal thoughts. SKIN: Intact. No rash. PHYSICAL EXAMINATION: V/S: blood pressure 93/56, respiratory rate 15,heart rate 73, temperature 97.9, saturation 96 GENERAL: Sick looking lady laying in a bed not in any distress. HEENT: Normocephalic, atraumatic. Mucosa dry. NECK: Supple. No JVD, no carotid bruit. No lymphadenopathy. LUNGS: Clear to auscultation. No rales or rhonchi. HEART: S1, S2 normal. No S3. No murmur, gallop or regurgitation. ABDOMEN: Soft, Left lower quadrant mild discomfort. Bowel sounds active. No rigidity. No rebound or guarding. No CVA tenderness. EXTREMITIES: No pedal edema. No clubbing or cyanosis MUSCULOSKELETAL: No joint swelling. NEUROLOGIC: Awake, alert, oriented times three. No focal deficit. LYMPHATIC: No lymph nodes palpable. SKIN: Intact. LABS: WBC 14.57, hgb 12.5, hct 36.2, plt count 211, sodium 139, potassium 4.2, chloride 111, bicarb 21,BUN 16, creatinine 0.81 and glucose 118. ASSESSMENT: 1. Acute gastroenteritis 2. Dehydration 3. Elevated WBC most like from the dehydration 4. History of Vasculitis 5. Heart murmur 6. Eclampsia 7. Endometriosis 8. Fibromyalgia PLAN: 1. Rocephin 1 gram daily 2. IV fluids 3. Toradol 4. Protonix 5. Clear liquid diet, advance as tolerated TIME SPENT: More than 35 minutes MTDD
--- NOTE | 2017-11-02 13:26 | DS ---
DATE OF SERVICE: 09/21/17 FINAL DIAGNOSIS: 1. ACUTE GASTROENTERITIS 2. INTRACTABLE NAUSEA AND VOMITING 3. HISTORY OF SEIZURE WITH ECLAMPSIA 4. VASCULITIS 5. HEART MURMUR 6. ENDOMETRIOSIS WITH UTERINE ABLATION 7. FIBROMYALGIA 8. TUBAL LIGATION DISCHARGE INSTRUCTIONS: Discharge the patient home. MEDICATIONS AT DISCHARGE: Flexeril Folic acid Methotrexate Prednisone Zantac NEW PRESCRIPTIONS: Zantac 150 mg twice a day Zofran 4 mg q.8hr DIET INSTRUCTIONS: Cardiac and Healthy; soft and advance as tolerated. ACTIVITY: As much as tolerated. Resume regular home activity. SMOKING: N/A DISEASE SPECIFIC EDUCATION: Dehydration Abdominal pain Nausea and vomiting Dehydration The patient verbalizes understanding HOSPITAL COURSE: This is a 32-year-old female who came to the emergency room with nausea, vomiting, unable to keep anything down. White count was 18,000. CT of the abdomen and pelvis did not show any findings with CT scan of the abdomen. Toxicology screen positive for cannabinoids. CT abdomen and pelvis did not show any abnormality. BUN and creatinine were normal. White count 18,000, admitted to the hospital, started on IV fluids, Zofran. Rocephin 1 gm daily was given. Demerol was for pain then switched to Toradol. Started the patient on clear liquid diet, advanced as tolerated. White count dropped to 11.03, did not have any complications during the hospital stay. Hemoglobin/hematocrit were steady. Up and about walking. As the patient was more active and tolerated the food, the patient was discharged home. TIME SPENT: MORE THAN 65 MINUTES MTDD
== END 2017-09-21 11:52 | disposition home or self-care (01) ==
LOC: ED 19:49 → MEDSURG B 21:54
PROVIDERS: ADMIT Emergency Medicine; ATTEND Emergency Medicine
DX: K52.9 Noninfective gastroenteritis and colitis, unspecified (principal); E86.0 Dehydration; R01.1 Cardiac murmur, unspecified; I77.6 Arteritis, unspecified; D72.829 Elevated white blood cell count, unspecified; M79.7 Fibromyalgia; F12.90 Cannabis use, unspecified, uncomplicated; N80.9 Endometriosis, unspecified; F17.210 Nicotine dependence, cigarettes, uncomplicated; Z98.51 Tubal ligation status; Z79.899 Other long term (current) drug therapy
CPT/HCPCS: 36415; 80053; 80306; 81001; 81025; 85025; 87086; 96361; 96365; 96374; 96375; 96376; 99217; 99226; 99284; 99285

== ENCOUNTER 2018-02-16 13:39 | Outpatient (CLI) ==
--- NOTE | 2018-02-16 14:59 | US ---
EXAM: Thyroid ultrasound History: Nontoxic multinodular goiter. Follow-up Comparison: Thyroid ultrasound 07/30/2014 Technique: Multiple sonographic images through the thyroid gland were obtained. Color duplex Dopple r was used to interrogate vascular flow. Findings: The right lobe of the thyroid measures 4.2 cm x 1.8 cm x 1.2 cm and demonstrates a 0.5 cm complex nod ule which is not significantly changed compared to the prior study. The thyroid isthmus measures 0.4 cm in thickness. The left lobe of the thyroid measures 4.6 cm x 1.9 cm x 1.5 cm demonstrates multiple sub-centimeter c omplex nodules with the largest measuring 0.6 cm not significantly changed compared to the prior stud y. No extrathyroidal masses are identified. The thyroid gland is not hypervascular. Impression: No significant interval change in the benign sub-centimeter thyroid nodules.
== END 2018-02-16 13:40 | disposition home or self-care (01) ==
LOC: RAD 13:39
PROVIDERS: ATTEND Emergency Medicine
DX: E04.2 Nontoxic multinodular goiter (principal)

== ENCOUNTER 2018-02-28 16:55 | Outpatient (CLI) | END 2018-02-28 16:56 | disposition home or self-care (01) | LOC: LAB 16:55 | PROVIDERS: ATTEND Internal Medicine Rheumatology | DX: Z51.81 Encounter for therapeutic drug level monitoring (principal) | CPT/HCPCS: 36415; 80048; 80076; 85027 ==

== ENCOUNTER 2018-08-09 10:26 | Outpatient (CLI) | END 2018-08-09 10:27 | disposition home or self-care (01) | LOC: RHC-LAB 10:26 | PROVIDERS: ATTEND Nurse Practitioner Family | DX: R05 Cough (principal); J02.9 Acute pharyngitis, unspecified | CPT/HCPCS: 87502; 87651 ==

== ENCOUNTER 2018-10-01 15:28 | Outpatient (CLI) | END 2018-10-01 15:29 | disposition home or self-care (01) | LOC: RHC-LAB 15:28 → FCC-LAB 15:29 | PROVIDERS: ATTEND Family Medicine | DX: J02.9 Acute pharyngitis, unspecified (principal); R05 Cough; Z20.818 Contact with and (suspected) exposure to other bacterial communicable diseases | CPT/HCPCS: 87651 ==